=== PATIENT | male | born 1985 | race Caucasian/White ===

== ENCOUNTER 2020-03-15 16:02 | Emergency (ER) | payer OTHER, MEDICARE ==
[2020-03-15 16:15] VITALS: O2SAT 98
[2020-03-15] MEDS ORDERED: BABY ASPIRIN 81 MG CHEW PO ONE (16:33)
[2020-03-15 16:51] LABS: Absolute Neutrophil Ct (ANC) 4.98 (1.4-6.9); BASOPHIL % 0.1 % (0.0-0.4); Basophil (Absolute #) 0.01 (0-0.4); Eosinophil % 1.4 % (0.00-5.0); Eosinophil (Absolute #) 0.11 (0-0.5); Hematocrit 40.9 % (42-50); Hemoglobin 13.9 gm/dl (12.5-18.0); Lymphocyte (Absolute #) 2.17 (1.0-4.6); Lymphocytes % 27.5 % (24.0-44.0); Mean Cell Volume 98.3 fl (78-100); Mean Corpuscular Hemoglobin 33.4 pg (26-32); Mean Platelet Volume 10.7 fl (7.5-11.0); Monocyte (Absolute #) 0.63 (0.0-1.3); Platelet Count 171 K/mm3 (150-450); Red Blood Count 4.16 M/mm3 (4.1-5.6); Red Cell Distribution Width 12.7 % (11.5-14.0); White Blood Count 7.9 K/mm3 (4.0-10.5)
--- NOTE | 2020-03-15 16:59 | ERPHSYRPT ---
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 Triage Nursing Assessment: pt is aox3, no acute distress, pupils perrl, afebrile, resps easy and non labored, radial pulses strong and equal, pain mid sternal chest, non radiating, cap refill < 3 seconds, pt skin pink warm dry, no edema noted. Physician History: 34 years old male with history of tobacco abuse, intermittent chest pains for last 6 months with negative nuclear stress test done presented in the ER with chief complaint of substernal chest pain sudden onset for the last 4-hour, continuous without any significant aggravating or relieving factors, dull aching to sharp in nature, with no radiation. Denies any associated palpitations or shortness of breath. Reports having similar symptoms multiple times in the past and was evaluated by cardiology at [facility] with negative nuclear stress test but does not have a cardiac cath done. Reports usually his pain improves quickly than this time. He called his marketing area manager and is sent in here for further work-up. Timing/Duration: today, sudden Activities at Onset: activity Quality: dullness, sharpness Location: substernal Chest Pain Radiation: no radiation Severity of Pain-Max: moderate Severity of Pain-Current: mild Modifying Factors: Improves With: nothing Associated Symptoms: denies symptoms Prior Chest Pain/Cardiac Workup: stress test Nitro Today/Relief: no nitro taken today Aspirin Treatment Today: no aspirin today Allergies/Adverse Reactions: No Known Drug Allergies Allergy (Unverified 03/15/20 16:28) Home Medications: No Reportable Medications [No Reported Medications] 03/15/20 [History] Hx Tetanus, Diphtheria Vaccination/Date Given: Yes Hx Influenza Vaccination/Date Given: No Hx Pneumococcal Vaccination/Date Given: No Immunizations Up to Date: Yes Travel Risk - International Travel Have you traveled outside of the country in past 3 weeks: No - Coronavirus Screening Are you exhibiting any of the following symptoms?: No Close contact with a COVID-19 positive Pt in past 14-21 Days: No - Review of Systems Constitutional: No Symptoms Eyes: No Symptoms Ears, Nose, & Throat: No Symptoms Respiratory: No Symptoms Cardiac: Chest Pain Abdominal/Gastrointestinal: No Symptoms Genitourinary Symptoms: No Symptoms Musculoskeletal: No Symptoms Skin: No Symptoms Neurological: No Symptoms Psychological: No Symptoms Endocrine: No Symptoms Hematologic/Lymphatic: No Symptoms - Past Medical History Pertinent Past Medical History: Yes Neurological History: Migraines Psycho-Social History: Depression, Other Other Medical History: CHEST PAIN, recent work up by Dr Munson with [facility]. PTSD. Major depressive disorder - Past Surgical History Past Surgical History: No - Social History Smoking Status: Never smoker Exposure to second hand smoke: No Drug Use: none Patient Lives Alone: No - Physical Exam General Appearance: no apparent distress, alert Eye Exam: PERRL/EOMI, eyes nml inspection Ears, Nose, Throat Exam: normal ENT inspection, pharynx normal Neck Exam: normal inspection, supple, full range of motion Respiratory Exam: normal breath sounds, lungs clear, No chest tenderness Cardiovascular Exam: regular rate/rhythm, normal heart sounds Gastrointestinal/Abdomen Exam: soft, No tenderness Back Exam: normal inspection Extremity Exam: normal inspection, normal range of motion Neurologic Exam: alert, oriented x 3, cooperative Skin Exam: normal color SpO2 Interpretation: normal SpO2: 98 O2 Delivery: Room Air - Course EKG Interpreted by Me: RATE (66), Sinus Rhythm, NORMAL AXIS, NORMAL INTERVALS, NORMAL QRS - Progress Progress: improved, re-examined Air Movement: good Progress Note: 03/15/20 18:55 34 years old is evaluated for chest pain. His chest pain is better now. He is given aspirin. Does not want any pain medications. EKG did not show any acute ischemic changes. Chest x-ray negative for any acute cardiopulmonary findings. Negative initial troponin and D-dimers. I have reviewed the results of his nuclear stress test which is negative. I would obtain second troponin and if negative patient will be discharged with outpatient follow-up with his marketing area manager. Second troponin is pending and care is transferred to Dr. Alegre due to shift change. Blood Culture(s) Obtained: No Antibiotics given: No Discussed with DrPreethi: Other Counseled pt/family regarding: lab results, diagnosis, rad results - Departure Clinical Impression: Chest pain Condition: Stable Referrals: HOSPITAL,'S [Primary Care Provider] - Additional Instructions: Call your marketing area manager tomorrow morning to make arrangements for follow-up appointment. Take your medications as prescribed. Return to the emergency department if your symptoms worsen. <MENDOZA ALEGRE RaePreethi - Last Filed: 03/15/20 20:30> - Nursing Vital Signs Nursing Vital Signs: Initial Vital Signs Temperature 98.4 F 03/15/20 16:04 Pulse Rate 72 03/15/20 16:04 Respiratory Rate 18 03/15/20 16:04 Blood Pressure 117/75 03/15/20 16:04 O2 Sat by Pulse Oximetry 98 03/15/20 16:04 Pain Scale Pain Intensity 0 Ordered Tests: Active Orders 24 hr Category Date Time Status [employer] Driver STAT Care 03/15/20 16:35 Active EKG-ER Only STAT Care 03/15/20 16:33 Active IV Insertion STAT Care 03/15/20 16:33 Active Pulse Oximetry (ED) STAT Care 03/15/20 16:33 Active CHEST 1 VIEW (PORTABLE) Stat Exams 03/15/20 16:35 Completed CBC W DIFF Stat Lab 03/15/20 16:33 Completed CMP Stat Lab 03/15/20 16:33 Completed D-DIMER QUANTITATIVE Stat Lab 03/15/20 16:12 Completed NT PRO BNP Stat Lab 03/15/20 16:33 Completed TROPONIN Q3H Lab 03/15/20 16:45 Completed TROPONIN Q3H Lab 03/15/20 19:41 Completed TROPONIN Q3H Lab 03/15/20 22:45 Ordered Medication Summary Discontinued Medications Generic Name Dose Route Start Last Admin Trade Name Romuolq PRN Reason Stop Dose Admin Aspirin 324 mg 03/15/20 16:33 03/15/20 16:35 Baby Aspirin 81 Mg Chew PO 03/15/20 16:34 324 mg STAT ONE Administration Lab/Rad Data: Laboratory Result Diagrams 03/15/20 16:33 03/15/20 16:33 Laboratory Results 03/15/20 03/15/20 03/15/20 Range/Units 19:41 16:45 16:33 WBC (4.0-10.5) K/mm3 RBC (4.1-5.6) M/mm3 Hgb (12.5-18.0) gm/dl Hct (42-50) % MCV (78-100) fl MCH (26-32) pg MCHC (32-36) g/dl RDW (11.5-14.0) % Plt Count (150-450) K/mm3 MPV (7.5-11.0) fl Gran % (36.0-66.0) % Eos # (Auto) (0-0.5) Absolute Lymphs (auto) (1.0-4.6) Absolute Monos (auto) (0.0-1.3) Lymphocytes % (24.0-44.0) % Monocytes % (0.0-12.0) % Eosinophils % (0.00-5.0) % Basophils % (0.0-0.4) % Absolute Granulocytes (1.4-6.9) Basophils # (0-0.4) D-Dimer (215-500) ng/mL Sodium 140 (137-145) mmol/L Potassium 3.7 (3.5-5.1) mmol/L Chloride 110 H (98-107) mmol/L Carbon Dioxide 24 (22-30) mmol/L Anion Gap 10.1 (5-15) MEQ/L BUN 14 (9-20) mg/dL Creatinine 0.85 (0.66-1.25) mg/dL Estimated GFR > 60.0 ML/MIN Glucose 100 (74-106) mg/dL Calcium 9.6 (8.4-10.2) mg/dL Total Bilirubin 0.60 (0.2-1.3) mg/dL AST 27 (17-59) U/L ALT 17 (0-50) U/L Alkaline Phosphatase 74 (38-126) U/L Troponin I < 0.012 < 0.012 (0.000-0.034) ng/mL NT-Pro-B Natriuret Pep 60.4 (0-450) pg/mL Serum Total Protein 6.9 (6.3-8.2) g/dL Albumin 4.3 (3.5-5.0) g/dL 03/15/20 03/15/20 Range/Units 16:33 16:12 WBC 7.9 (4.0-10.5) K/mm3 RBC 4.16 (4.1-5.6) M/mm3 Hgb 13.9 (12.5-18.0) gm/dl Hct 40.9 L (42-50) % MCV 98.3 (78-100) fl MCH 33.4 H (26-32) pg MCHC 34.0 (32-36) g/dl RDW 12.7 (11.5-14.0) % Plt Count 171 (150-450) K/mm3 MPV 10.7 (7.5-11.0) fl Gran % 63.0 (36.0-66.0) % Eos # (Auto) 0.11 (0-0.5) Absolute Lymphs (auto) 2.17 (1.0-4.6) Absolute Monos (auto) 0.63 (0.0-1.3) Lymphocytes % 27.5 (24.0-44.0) % Monocytes % 8.0 (0.0-12.0) % Eosinophils % 1.4 (0.00-5.0) % Basophils % 0.1 (0.0-0.4) % Absolute Granulocytes 4.98 (1.4-6.9) Basophils # 0.01 (0-0.4) D-Dimer 330 (215-500) ng/mL Sodium (137-145) mmol/L Potassium (3.5-5.1) mmol/L Chloride (98-107) mmol/L Carbon Dioxide (22-30) mmol/L Anion Gap (5-15) MEQ/L BUN (9-20) mg/dL Creatinine (0.66-1.25) mg/dL Estimated GFR ML/MIN Glucose (74-106) mg/dL Calcium (8.4-10.2) mg/dL Total Bilirubin (0.2-1.3) mg/dL AST (17-59) U/L ALT (0-50) U/L Alkaline Phosphatase (38-126) U/L Troponin I (0.000-0.034) ng/mL NT-Pro-B Natriuret Pep (0-450) pg/mL Serum Total Protein (6.3-8.2) g/dL Albumin (3.5-5.0) g/dL - Progress Progress Note: 03/15/20 20:29 Chest pain has resolved. Patient second troponin (3-hour) is also negative. Patient is to be discharged to home with outpatient follow-up with his marketing area manager. - Departure Departure Disposition: Home Critical Care Time: No
--- NOTE | 2020-03-15 17:02 | XRAY ---
Indication: Chest pain 6 months. Comparison: None Portable chest demonstrates normal heart, lungs, and bony thorax.
[2020-03-15 17:21] LABS: ALBUMIN 4.3 g/dL (3.5-5.0); ALKALINE PHOSPHATASE 74 U/L (38-126); ANION GAP 10.1 MEQ/L (5-15); BLOOD UREA NITROGEN 14 mg/dL (9-20); CHLORIDE 110 mmol/L (98-107); Calcium 9.6 mg/dL (8.4-10.2); Carbon Dioxide 24 mmol/L (22-30); Creatinine 1 0.85 mg/dL (0.66-1.25); Glucose 100 mg/dL (74-106); NT PRO BNP 60.4 pg/mL (0-450); Potassium 3.7 mmol/L (3.5-5.1); SGOT/AST 27 U/L (17-59); SGPT/ALT 17 U/L (0-50); SODIUM 140 mmol/L (137-145); Total Protein 6.9 g/dL (6.3-8.2)
[2020-03-15 19:28] VITALS: BP 114/74
[2020-03-15 20:05] VITALS: PULSE 59
== END 2020-03-15 20:35 | disposition home or self-care (01) ==
LOC: ED 16:02
DX: R07.9 Chest pain, unspecified (principal)
CPT/HCPCS: 36000; 36415; 71045; 80053; 83880; 84484; 85025; 85379; 93005; 93041; 94760; 99284; A9270-GY

== ENCOUNTER 2023-05-31 14:48 | Emergency (ER) | payer MEDICARE, OTHER ==
[2023-05-31 15:06] VITALS: TEMP 98.2
--- NOTE | 2023-05-31 15:06 | ERPHSYRPT ---
- History of Present Illness Time Seen by Provider: 05/31/23 15:06 Source: patient, family Exam Limitations: no limitations Physician History: This is a 37-year-old white male patient who was grinding steel without goggles in place and felt a foreign body hit his right eye at approximately the 12 o'clock position or more cranially in the eye on the right side. He has been having redness and tearing since it occurred. He tried flushing out to the site several times and used eyedrops without much benefit. Patient has a history of anxiety/depression, hypothyroidism and migraine headaches. He has a foreign body sensation in his eye in that region when he moves it around. He does not see any cloudiness or abnormality when he is looking out his right eye. Timing/Duration: today Location: right eye Severity: mild Apparent Injury: possibly Associated Symptoms: burning, sensitivity to light, redness, foreign body sensation Visual Assistive Devices: None Chemical Exposure: No Trauma: Yes (Possibly with grinding steel particles) Allergies/Adverse Reactions: bupropion [From Wellbutrin] Allergy (Verified 05/31/23 15:07) Home Medications: Levothyroxine Sodium 25 Mcg [Synthroid 25 Mcg] 25 mcg PO DAILY 05/31/23 [History] Lorazepam 0.5 mg [Ativan 0.5 MG] 0.5 mg PO BID PRN 05/31/23 [History] Hx Tetanus, Diphtheria Vaccination/Date Given: Yes Hx Influenza Vaccination/Date Given: No Hx Pneumococcal Vaccination/Date Given: No Travel Risk - International Travel Have you traveled outside of the country in past 3 weeks: No - Coronavirus Screening Are you exhibiting any of the following symptoms?: No Close contact with a COVID-19 positive Pt in past 14-21 Days: No - Review of Systems Constitutional: No Symptoms Eyes: Eye Redness (Right I), Tearing (Right I), Foreign Body Sensation (Right I) Ears, Nose, & Throat: No Symptoms Respiratory: No Symptoms Cardiac: No Symptoms Abdominal/Gastrointestinal: No Symptoms Genitourinary Symptoms: No Symptoms Musculoskeletal: No Symptoms Skin: No Symptoms Neurological: No Symptoms Psychological: No Symptoms Endocrine: No Symptoms Hematologic/Lymphatic: No Symptoms Immunological/Allergic: No Symptoms All Other Systems: Reviewed and Negative - Past Medical History Pertinent Past Medical History: Yes Neurological History: Migraines Psycho-Social History: Depression, Other Other Medical History: CHEST PAIN, recent work up by Dr Munson with [facility]. PTSD. Major depressive disorder - Past Surgical History Past Surgical History: No - Social History Smoking Status: Never smoker Exposure to second hand smoke: No Drug Use: none Patient Lives Alone: No - Nursing Vital Signs Nursing Vital Signs: Initial Vital Signs Temperature 98.2 F 05/31/23 15:01 Pulse Rate 64 05/31/23 15:01 Blood Pressure 117/82 05/31/23 15:01 O2 Sat by Pulse Oximetry 98 05/31/23 15:01 Pain Scale Pain Intensity 5 - Physical Exam General Appearance: no apparent distress, alert, anxiety, thin Vision Acuity Degree Evaluation Phase: Uncorrected Eye Exam: right eye: conjunctival inflammation, left eye: normal inspection, bilateral eye: PERRL, EOMI Ears, Nose, Throat Exam: normal ENT inspection, moist mucous membranes Neck Exam: normal inspection, non-tender, supple, full range of motion Respiratory Exam: airway intact, No chest tenderness, No respiratory distress Gastrointestinal Exam: No tenderness Extremity Exam: normal inspection, normal range of motion, pelvis stable Neurologic: alert, oriented x 3, cooperative, re etcher II-XII nml as tested, normal mood/affect, nml cerebellar function, nml station & gait, sensation nml Skin Exam: normal color, warm, dry Lymphatic: No adenopathy SpO2 Interpretation: normal O2 Delivery: Room Air Procedures - Eye Procedure Time of Procedure: 15:30 Timeout: Performed Tetracaine Drops Administered: Yes Antibiotic Oinment/Drps Admin: right eye Progress: After the tetracaine drops were placed I performed an examination cir cumferentially as well as anteriorly of the globe as far as I could see. I examined underside of the upper and lower eyelids without any evidence of foreign body present. There appeared to be a burn site at the 12 o'clock position and this may account for the patient's symptoms. Patient tolerated the procedure well. - Course Nursing assessment & vital signs reviewed: Yes Ordered Tests: Medication Summary Discontinued Medications Generic Name Dose Route Start Last Admin Trade Name Romuloq PRN Reason Stop Dose Admin Fluorescein Sodium Confirm 05/31/23 15:29 Fluorescein Sodium 1 Mg/Strip Strip Administered 05/31/23 15:30 Dose 1 mg OP .STK-MED ONE Fluorescein Sodium 1 mg 05/31/23 15:38 05/31/23 15:39 Fluorescein Sodium 1 Mg/Strip Strip OP 05/31/23 15:39 1 mg STAT ONE Administration Tetracaine HCl 4 ml 05/31/23 15:23 05/31/23 15:39 Tetracaine Hcl/Pf 4 Ml Bottle OP 05/31/23 15:24 4 ml STAT STA Administration Tetracaine HCl Confirm 05/31/23 15:29 Tetracaine Hcl/Pf 4 Ml Bottle Administered 05/31/23 15:30 Dose 4 ml OP .STK-MED ONE - Progress Progress: improved, re-examined Progress Note: 05/31/23 15:47 This patient's medical issue is 1 of low complexity. Level complex in the work- up performed is based on review of the patient's past medical history, review the patient's medication list, review the patient drug allergy list, history of present illness and physical findings on examination. The patient does not require any radiographic or laboratory studies. Patient did undergo fluorescein examination as well as examination with magnification. The examination did not yield any evidence of foreign body. Patient will be given antibiotic eyedrops and a hydrocodone 5/325 pill here in the emergency department I will send remotely, to his pharmacy a prescription for more antibiotic eyedrops and 6 tablets of hydrocodone 5/325. We will attempt to make an appointment for him to see an enrichment specialist within the next 3 to 5 days for further evaluation management. Counseled pt/family regarding: diagnosis, need for follow-up Medical Desision Making - Independent Historian Additional History obtained from: Spouse - Diagnostic Testing Diagnostic test were ordered, analyzed, and reviewed by me: No - Risk of complications The pt has a mod risk of morbidity or mortality based on: Need for prescription drug management - Departure Departure Disposition: Home Clinical Impression: Acute conjunctivitis, right eye Condition: Stable Critical Care Time: No Referrals: HOSPITAL,'S [Primary Care Provider] - Follow up/PCP as directed Additional Instructions: Use the eyedrops and your pain medicine as prescribed. Follow-up with enrichment specialist by phone if you have not obtained an appointment. If we were able to obtain an appointment for you, keep that appointment date and time. Prescriptions: Hydrocodone/APAP 5/325 [Chimayo 5/325 mg] 1 each PO Q8H PRN PRN #6 tablet MDD 3 PRN Reason: Pain Stuart/Poly/Hc Eye Drops [Cortisporin Eye Drops] 2 drops OP Q4H #7.5 ml
[2023-05-31] MEDS ORDERED: TETRACAINE 0.5% STERI-UNIT SOL OP STA (15:23)
[2023-05-31] MEDS ORDERED: Fluor-I-Strip/Ful-Flo OP ONE (15:29)
[2023-05-31] MEDS ORDERED: TETRACAINE 0.5% STERI-UNIT SOL OP ONE (15:29)
[2023-05-31] MEDS: Fluor-I-Strip/Ful-Flo OP ONE ×2 (15:39→18:37)
[2023-05-31] MEDS ORDERED: NORCO 5/325 MG PO ONE (15:54)
[2023-05-31] MEDS ORDERED: NORCO 5/325 MG ONE (15:56)
[2023-05-31 16:02] VITALS: BP 106/68; PULSE 62; O2SAT 96
== END 2023-05-31 15:59 | disposition home or self-care (01) ==
LOC: ED 14:48
DX: H10.31 Unspecified acute conjunctivitis, right eye (principal); Z79.899 Other long term (current) drug therapy; Z79.891 Long term (current) use of opiate analgesic
CPT/HCPCS: 99281; A9270-GY

== ENCOUNTER 2023-07-10 10:22 | Emergency (ER) | payer MEDICARE, OTHER ==
[2023-07-10 10:37] VITALS: TEMP 98.1
[2023-07-10 11:10] LABS: Absolute Neutrophil Ct (ANC) 3.57 x10^3/uL (1.4-6.9); BASOPHIL % 0.2 % (0.0-0.4); Basophil (Absolute #) 0.01 x10^3/uL (0-0.4); Eosinophil % 1.1 % (0.00-5.0); Eosinophil (Absolute #) 0.05 x10^3/uL (0-0.5); Hematocrit 42.3 % (42-50); Hemoglobin 14.3 g/dL (12.5-18.0); IMMATURE GRAN # 0.01 x10^3u/L (0.00-0.03); IMMATURE GRAN % 0.2 % (0.00-0.4); Lymphocyte (Absolute #) 0.56 x10^3/uL (1.0-4.6); Lymphocytes % 12.2 % (24.0-44.0); Mean Cell Volume 96.4 fL (78-100); Mean Corpuscular Hemoglobin 32.6 pg (26-32); Mean Corpuscular Hgb Concent. 33.8 g/dL (32-36); Monocyte (Absolute #) 0.38 x10^3/uL (0.0-1.3); Monocytes % 8.3 % (0.0-12.0); Platelet Count 151 x10^3/uL (150-450); Red Blood Count 4.39 x10^6/uL (4.1-5.6); Red Cell Distribution Width 12.4 % (11.5-14.0); White Blood Count 4.6 x10^3/uL (4.0-10.5)
[2023-07-10 11:33] VITALS: O2SAT 96
[2023-07-10 11:37] LABS: ALBUMIN 4.1 g/dL (3.5-5.0); ANION GAP 14.2 MEQ/L (5-15); BILIRUBIN,TOTAL 1.1 mg/dL (0.2-1.3); Calcium 9.2 mg/dL (8.4-10.2); Creatinine 1 0.8 mg/dL (0.66-1.25); EST GLOMERULAR FILTRATION RATE 115.5 ML/MIN; Potassium 4.2 mmol/L (3.5-5.1); Total Protein 6.9 g/dL (6.3-8.2)
[2023-07-10 11:39] LABS: Slide Review 1 YES
--- NOTE | 2023-07-10 11:54 | ERPHSYRPT ---
- History of Present Illness Time Seen by Provider: 07/10/23 11:00 Source: patient Exam Limitations: no limitations Patient Subjective Stated Complaint: Pt states "I was at work yesterday and I had an episode of diaphoresis and felt not good. I ate a pop tart and a granola bar and I felt better." Triage Nursing Assessment: Pt presented alert and orietented X 3, skin pwd. pt ambulates with an upright steady gait, able to speak in clear full sentences. Pt resting cofortably on bed. Physician History: 37-year-old male presents to our ED for evaluation of feeling unwell. Patient said he had an episode of feeling unwell yesterday. Patient ate a granola bar and a pop tart and felt better. Patient currently asymptomatic. Glucose checked in our ED. Blood glucose was 52. Patient states he has been exercising and correcting his diet. Patient taking [id number] supplements as well. Otherwise no other significant change in his lifestyle. No associated chest pain or shortness of breath. No nausea vomiting or diaphoresis. Symptoms are mild to moderate in intensity when present. Patient voices no other complaints or concerns at this time. Timing/Duration: yesterday Severity: moderate Modifying Factors: Improves With: nothing Associated Symptoms: denies symptoms Allergies/Adverse Reactions: bupropion [From Wellbutrin] Allergy (Verified 05/31/23 15:07) Home Medications: Levothyroxine Sodium 25 Mcg [Synthroid 25 Mcg] 25 mcg PO DAILY 05/31/23 [History] Lorazepam 0.5 mg [Ativan 0.5 MG] 0.5 mg PO BID PRN 05/31/23 [History] Hx Tetanus, Diphtheria Vaccination/Date Given: Yes Hx Influenza Vaccination/Date Given: No Hx Pneumococcal Vaccination/Date Given: No Immunizations Up to Date: No Travel Risk - International Travel Have you traveled outside of the country in past 3 weeks: No - Coronavirus Screening Are you exhibiting any of the following symptoms?: No - Vaccine Status Have you recieved a Covid-19 vaccination: No - Review of Systems Constitutional: No Symptoms, No Fever, No Chills Eyes: No Symptoms Ears, Nose, & Throat: No Symptoms Respiratory: No Symptoms, No Cough, No Dyspnea Cardiac: No Symptoms, No Chest Pain, No Edema, No Syncope Abdominal/Gastrointestinal: No Symptoms, No Abdominal Pain, No Nausea, No Vomiting, No Diarrhea Genitourinary Symptoms: No Symptoms, No Dysuria Musculoskeletal: No Symptoms, No Back Pain, No Neck Pain Skin: No Symptoms, No Rash Neurological: No Symptoms, No Dizziness, No Focal Weakness, No Sensory Changes Psychological: No Symptoms Endocrine: No Symptoms Hematologic/Lymphatic: No Symptoms Immunological/Allergic: No Symptoms All Other Systems: Reviewed and Negative - Past Medical History Pertinent Past Medical History: Yes Neurological History: Migraines Endocrine Medical History: Hypothyroidism Psycho-Social History: Anxiety, Depression, Other Other Medical History: CHEST PAIN, recent work up by Dr Munson with [facility]. PTSD. Major depressive disorder - Past Surgical History Past Surgical History: No - Social History Smoking Status: Never smoker Exposure to second hand smoke: No Drug Use: marijuana Patient Lives Alone: No - Nursing Vital Signs Nursing Vital Signs: Initial Vital Signs Temperature 98.1 F 07/10/23 10:32 Pulse Rate 76 07/10/23 10:32 Respiratory Rate 20 07/10/23 10:32 Blood Pressure 127/83 07/10/23 10:32 O2 Sat by Pulse Oximetry 98 07/10/23 10:32 Pain Scale Pain Intensity 0 - Physical Exam General Appearance: no apparent distress, alert Eye Exam: PERRL/EOMI, eyes nml inspection Ears, Nose, Throat Exam: normal ENT inspection, TMs normal, pharynx normal, moist mucous membranes Neck Exam: normal inspection, non-tender, supple, full range of motion Respiratory Exam: normal breath sounds, lungs clear, airway intact, No respiratory distress Cardiovascular Exam: regular rate/rhythm, normal heart sounds, normal peripheral pulses Gastrointestinal/Abdomen Exam: soft, normal bowel sounds, No tenderness, No mass Back Exam: normal inspection, normal range of motion, No CVA tenderness, No vertebral tenderness Extremity Exam: normal inspection, normal range of motion, pelvis stable Neurologic Exam: alert, oriented x 3, cooperative, normal mood/affect, nml cerebellar function, nml station & gait, sensation nml, No motor deficits Skin Exam: normal color, warm, dry, No rash Lymphatic Exam: No adenopathy SpO2 Interpretation: normal SpO2: 96 O2 Delivery: Room Air - Course Nursing assessment & vital signs reviewed: Yes EKG Interpreted by Me: RATE, Sinus Rhythm, NORMAL AXIS, NORMAL INTERVALS Ordered Tests: Active Orders 24 hr Category Date Time Status [employer] STAT Care 07/10/23 10:44 Active EKG-ER Only STAT Care 07/10/23 10:43 Active IV Insertion STAT Care 07/10/23 10:43 Active Pulse Oximetry (ED) STAT Care 07/10/23 10:43 Active CBC W DIFF Stat Lab 07/10/23 11:00 Completed CMP Stat Lab 07/10/23 11:00 Completed POCT GLUCOSE Stat Lab 07/10/23 10:31 Completed TROPONIN Q4H Lab 07/10/23 11:00 Completed TROPONIN Q4H Lab 07/10/23 14:45 Ordered TROPONIN Q4H Lab 07/10/23 18:45 Ordered Lab/Rad Data: Laboratory Result Diagrams 07/10/23 11:00 07/10/23 11:00 Laboratory Results 07/10/23 07/10/23 07/10/23 Range/Units 11:00 11:00 11:00 WBC 4.6 (4.0-10.5) x10^3/uL RBC 4.39 (4.1-5.6) x10^6/uL Hgb 14.3 (12.5-18.0) g/dL Hct 42.3 (42-50) % MCV 96.4 (78-100) fL MCH 32.6 H (26-32) pg MCHC 33.8 (32-36) g/dL RDW 12.4 (11.5-14.0) % Plt Count 151 (150-450) x10^3/uL MPV 10.0 (7.5-11.0) fL Gran % 78.0 H (36.0-66.0) % Immature Gran % (Auto) 0.2 (0.00-0.4) % Nucleat RBC Rel Count 0.0 (0.00-0.1) % Eos # (Auto) 0.05 (0-0.5) x10^3/uL Immature Gran # (Auto) 0.01 (0.00-0.03) x10^3u/L Absolute Lymphs (auto) 0.56 L (1.0-4.6) x10^3/uL Absolute Monos (auto) 0.38 (0.0-1.3) x10^3/uL Absolute Nucleated RBC 0.00 (0.00-0.01) x10^3u/L Lymphocytes % 12.2 L (24.0-44.0) % Monocytes % 8.3 (0.0-12.0) % Eosinophils % 1.1 (0.00-5.0) % Basophils % 0.2 (0.0-0.4) % Absolute Granulocytes 3.57 (1.4-6.9) x10^3/uL Basophils # 0.01 (0-0.4) x10^3/uL Sodium 138 (137-145) mmol/L Potassium 4.2 (3.5-5.1) mmol/L Chloride 104 (98-107) mmol/L Carbon Dioxide 24 (22-30) mmol/L Anion Gap 14.2 (5-15) MEQ/L BUN 12 (9-20) mg/dL Creatinine 0.80 (0.66-1.25) mg/dL Estimated GFR 115.5 ML/MIN Glucose 104 (74-106) mg/dL POC Glucometer (74 to 106) mg/dL Calcium 9.2 (8.4-10.2) mg/dL Total Bilirubin 1.10 (0.2-1.3) mg/dL AST 37 (17-59) U/L ALT 33 (0-50) U/L Alkaline Phosphatase 65 (38-126) U/L Troponin I < 0.012 (0.000-0.034) ng/mL Serum Total Protein 6.9 (6.3-8.2) g/dL Albumin 4.1 (3.5-5.0) g/dL Slides for Path Review YES 07/10/23 Range/Units 10:31 WBC (4.0-10.5) x10^3/uL RBC (4.1-5.6) x10^6/uL Hgb (12.5-18.0) g/dL Hct (42-50) % MCV (78-100) fL MCH (26-32) pg MCHC (32-36) g/dL RDW (11.5-14.0) % Plt Count (150-450) x10^3/uL MPV (7.5-11.0) fL Gran % (36.0-66.0) % Immature Gran % (Auto) (0.00-0.4) % Nucleat RBC Rel Count (0.00-0.1) % Eos # (Auto) (0-0.5) x10^3/uL Immature Gran # (Auto) (0.00-0.03) x10^3u/L Absolute Lymphs (auto) (1.0-4.6) x10^3/uL Absolute Monos (auto) (0.0-1.3) x10^3/uL Absolute Nucleated RBC (0.00-0.01) x10^3u/L Lymphocytes % (24.0-44.0) % Monocytes % (0.0-12.0) % Eosinophils % (0.00-5.0) % Basophils % (0.0-0.4) % Absolute Granulocytes (1.4-6.9) x10^3/uL Basophils # (0-0.4) x10^3/uL Sodium (137-145) mmol/L Potassium (3.5-5.1) mmol/L Chloride (98-107) mmol/L Carbon Dioxide (22-30) mmol/L Anion Gap (5-15) MEQ/L BUN (9-20) mg/dL Creatinine (0.66-1.25) mg/dL Estimated GFR ML/MIN Glucose (74-106) mg/dL POC Glucometer 52 L (74 to 106) mg/dL Calcium (8.4-10.2) mg/dL Total Bilirubin (0.2-1.3) mg/dL AST (17-59) U/L ALT (0-50) U/L Alkaline Phosphatase (38-126) U/L Troponin I (0.000-0.034) ng/mL Serum Total Protein (6.3-8.2) g/dL Albumin (3.5-5.0) g/dL Slides for Path Review - Progress Progress: improved Progress Note: 37-year-old male presents to our ED for an episode of feeling unwell yesterday. Symptoms resolved after eating a pop tart and a granola bar. We checked p atient's sugar it was observed to be 52. Patient states he has been working out eating a low carbohydrate diet and taking [id number]-[id number] supplements. It appears that thisRegimen has been producing episodes of hypoglycemia. Physical exam otherwise nonremarkable. EKG normal sinus rhythm. CBC CMP nonremarkable troponin negative. No indication for further workup. Patient states he is otherwise healthy. Patient voices no other complaints or concerns at this time. Portions of this note were created with voice recognition technology. There may be grammatical, spelling, punctuation or sound alike errors Complexity of problems addressed is moderate acute No critical care time Complexity of data reviewed and analyzed is Moderate. Test ordered test reviewed. Results analyzedAnd correlated Clinically with history and physical exam Risk of complication and or risk of morbidity/mortality of patient management is moderate. Patient advised to discontinue the [id number] supplementation. Patient understands the importance of adequate carbohydrate intake. Patient will buy a glucometer from [employer] and assess his blood sugar levels. He will follow-up with his primary care doctor for reevaluation. Patient will keep candy sugary juices with him in the event that he experiences another episode of hypoglycemia.He will follow-up with his primary care doctor for further evaluation and treatment. Time spent to discharge patient approximately 15 minutes. Vital stable. Plan of care established for shared decision making. No social determinants of health present to impede follow-up Portions of this note were created with voice recognition technology. There may be grammatical, spelling, punctuation or sound alike errors 07/10/23 12:07 Counseled pt/family regarding: lab results, diagnosis, need for follow-up - Departure Departure Disposition: Home Clinical Impression: Hypoglycemia Condition: Stable Critical Care Time: No Referrals: HOSPITAL,'S [Primary Care Provider] - Follow up/PCP as directed Additional Instructions: Discharge/Care Plan RIBERAMOUNA was seen on 07/10/23 in the Emergency Room. The patient was counseled regarding Diagnosis,Lab results, Imaging studies, need for follow up and when to return to the Emergency Room. Prescriptions given: Discharge Note I have spoken with the patient and/or caregivers. I have explained the patient's condition, diagnosis and treatment plan based on the information available to me at this time. I have answered the patient's and/or caregiver's questions and addressed any concerns. The patient and/or caregivers have as good understanding of the patient's diagnosis, condition and treatment plan as can be expected at this point. The vital signs have been stable. The patient's condition is stable and appropriate for discharge from the emergency department. The patient will pursue further outpatient evaluation with the primary care physician or other designated or consulting physician as outlined in the discharge instructions. The patient and/or caregivers are agreeable to this plan of care and follow-up instructions have been explained in detail. The patient and/or caregivers have received these instruction. The patient/and or caregivers are aware that any significant change in condition or worsening of symptoms should prompt an immediate return to this or the closest emergency department or call 911.
[2023-07-10 12:15] VITALS: BP 116/70; PULSE 77; RESP 16
== END 2023-07-10 12:19 | disposition home or self-care (01) ==
LOC: ED 10:22
DX: E16.2 Hypoglycemia, unspecified (principal); Z79.899 Other long term (current) drug therapy; Z28.310 Unvaccinated for COVID-19
CPT/HCPCS: 36415; 80053; 82947; 84484; 85025; 93005; 93041; 94760; 99283